=== PATIENT | female | born 1930 | race Caucasian/White ===

== ENCOUNTER 2016-09-21 01:03 | Inpatient (IN) | payer MEDICARE, MEDICAID, OTHER ==
[~2016-09-21] VITALS: Ht 152.4 cm; Wt 75.9 kg
[~2016-09-21 01:03] MED LIST: AMLO10TA4 PO; ASPI-605 PO; BISA10SU12 RC; BLOO-125 IN; CHOL10005 PO; DIGO125T PO; DOCU-25 PO; GUAI118S11 PO; INSU100V28 SQ; INSU100V7 SQ; LEVO500T15 PO; METO50TA PO; METR-105 PO; MULT1CAP34 PO; RIVA10TA PO
[2016-09-21] MEDS ORDERED: PANTOPRAZOLE SODIUM 40 MG VIAL IV ONE (01:45)
[2016-09-21] MEDS ORDERED: IV NORMAL SALINE 1000 ML BAG IV ONE (01:45)
[2016-09-21 01:50] LABS: *OCCULT BLOOD STOOL POSITIVE (NEGATIVE)
[2016-09-21 01:52] LABS: BASOPHILS % (AUTO) 0.4 % (0.0-2.0); EOSINOPHILS # (AUTO) 0.5 K/uL (0.0-0.7); EOSINOPHILS % (AUTO) 4.9 % (0.0-7.0); HEMOGLOBIN 9.5 G/DL (12.0-16.0); LYMPHOCYTES # (AUTO) 2.7 K/UL (0.8-4.8); LYMPHOCYTES % (AUTO) 29.4 % (20.5-51.5); MEAN CORPUSCULAR HEMOGLOBIN 24.3 UUG (27.0-31.0); MEAN CORPUSCULAR HGB CONC 32 g/dL (32.0-37.0); MONOCYTES # (AUTO) 0.7 K/UL (0.1-1.30); NEUTROPHILS # (AUTO) 5.4 K/UL (1.8-8.9); NEUTROPHILS % (AUTO) 58.3 % (38.5-71.5); PLATELET COUNT (AUTO) 643 K/UL (150-450); RED BLOOD CELL COUNT(AUTO) 3.89 MIL/UL (4.2-5.4); WHITE BLOOD COUNT (AUTO) 9.3 K/UL (4.0-11.2)
[2016-09-21] MEDS ORDERED: PANTOPRAZOLE SODIUM 40 MG VIAL ONE (01:58)
[2016-09-21 02:07] LABS: ALANINE AMINOTRANSFERASE 12 U/L (14-59); ALKALINE PHOSPHATASE 74 U/L (50-136); ASPARTATE AMINOTRANSFERASE 24 U/L (15-37); BILIRUBIN,DIRECT < 0.1 mg/dL (0.0-0.2); BILIRUBIN,TOTAL 0.2 mg/dL (0.2-1.0); CARBON DIOXIDE 33 mmol/L (21-32); CHLORIDE 103 mmol/L (98-107); CREATININE 0.8 mg/dL (0.6-1.3); GLUCOSE 200 mg/dL (74-106); LIPASE 88 U/L (73-393); POTASSIUM 3.3 mmol/L (3.5-5.1); TOTAL PROTEIN, SERUM 7.3 g/dL (6.4-8.2); UREA NITROGEN, BLOOD 6 mg/dL (7-18)
[2016-09-21] MEDS ORDERED: CRANBERRY TAB PO (02:07)
[2016-09-21] MEDS ORDERED: FERR325T28 PO (02:07)
[2016-09-21] MEDS ORDERED: ALEN70TA3 PO (02:07)
[2016-09-21] MEDS ORDERED: ACID1TAB4 PO (02:07)
[2016-09-21] MEDS ORDERED: MAGN400T6 PO (02:07)
[2016-09-21] MEDS ORDERED: GLUC1KIT IM (02:07)
[2016-09-21] MEDS ORDERED: MORPHINE SULFATE 4 MG/1 ML DISP.SYRIN ONE (02:13)
[2016-09-21] MEDS ORDERED: MORPHINE SULFATE 4 MG/1 ML DISP.SYRIN IV ONE (02:15)
[2016-09-21] MEDS ORDERED: RISP1TAB7 PO ×2 (02:37)
[2016-09-21] MEDS ORDERED: MAGN400O4 PO (02:37)
[2016-09-21] MEDS ORDERED: INSU10VI3 SQ ×2 (02:37)
[2016-09-21] MEDS ORDERED: ACET-2154 PO (02:37)
[2016-09-21] MEDS ORDERED: OMEP20CA10 PO (02:37)
[2016-09-21] MEDS ORDERED: ASCO500C16 PO (02:37)
[2016-09-21] MEDS ORDERED: POLY17PO4 PO (02:37)
--- NOTE | 2016-09-21 03:17 | NUR ---
Pt. admitted to TELE, under care of Dr. Avila Belongs List completed
[2016-09-21 03:45] VITALS: BP 164/83
--- NOTE | 2016-09-21 04:00 | NUR ---
PATIENT RECEIVED FROM ED ACCOMPANIED BY ER STAFF VIA [facility]. PT ADMITTED TO TELEMETRY FOR GI BLEED, PER REPORT PT WAS POSITIVE FOR OCCULT BLOOD WHERE SHE RESIDES AT [facility] AND ALSO POSITIVE FOR OCCULT BLOOD IN ED. PT HAS HISTORY OF HTN, A-FIB, LEFT PACEMAKER, DIABETES, AND GERD. PT IS NON VERBAL, ABLE TO STATE NAME WITH DELAYED RESPONSE. PT IS CONFUSED AND DISORIENTED, GUARDED, BECAME SOMEWHAT COMBATIVE UPON APPROACH. ON REGRADER PT SHOWING A-FIB IN 120'S. PT HAS HEP LOCK IN RIGHT HAND #22 INTACT. NOTED TO REDNESS ALL OVER BUTTOCKS, BRUISES TO BOTH ARMS, RASH TO UNDER BREAST AND GROIN AREA. MD WAS CALLED FOR ORDERS AND AWARE OF PT STATUS. SAFETY MEASURES MAINTAINED.
[2016-09-21] MEDS ORDERED: ONDANSETRON 4 MG/2 ML VIAL IV PRN (05:15)
[2016-09-21] MEDS ORDERED: Z GUARD REMEDY PASTE 57 GM TUBE TOP PRN (05:15)
[2016-09-21] MEDS ORDERED: DEXTROSE 50% 50 ML DISP.SYRIN IV PRN (05:15)
--- NOTE | 2016-09-21 06:48 | NUR ---
PATIENT RESTING COMFORTABLY AT THIS TIME. PT HAS DVT PUMPS ON. FINGERSTICK 142MG/DL. NO ACUTE DISTRESS NOTED. SAFETY MEASURES MAINTAINED.
[2016-09-21] MEDS: BLOOD SUGAR DIAGNOSTIC 1 EACH STRIP VI SCH ×4 (07:30→20:43)
--- NOTE | 2016-09-21 07:37 | NUR ---
PATIENT RECEIVE IN ROOM RESTING WITH EYES CLOSED EASILY AWAKEN IN NO ACUTE DISTRESS. RESPIRATIONS EVEN AND UNLABORED. H.L. INTACT AND PATENT. FALL PRECAUTIONS IN PLACE.
[2016-09-21] MEDS ORDERED: GLUCAGON,HUMAN RECOMBINANT 1 MG VIAL IM PRN (08:15)
[2016-09-21] MEDS ORDERED: BISACODYL 10 MG SUPP.RECT RC PRN (08:15)
[2016-09-21] MEDS ORDERED: GUAIFENESIN/DEXTROMETHORPHAN 5 ML UDC PO PRN (08:15)
[2016-09-21 08:47] LABS: BASOPHILS % (AUTO) 0.3 % (0.0-2.0); EOSINOPHILS # (AUTO) 0.5 K/uL (0.0-0.7); HEMATOCRIT 29.3 % (37-47); HEMOGLOBIN 9.3 G/DL (12.0-16.0); LYMPHOCYTES # (AUTO) 2.7 K/UL (0.8-4.8); LYMPHOCYTES % (AUTO) 27.6 % (20.5-51.5); MEAN CORPUSCULAR HEMOGLOBIN 24.6 UUG (27.0-31.0); MEAN CORPUSCULAR HGB CONC 32 g/dL (32.0-37.0); MEAN CORPUSCULAR VOLUME 77.7 FL (81.0-99.0); MONOCYTES # (AUTO) 0.7 K/UL (0.1-1.30); MONOCYTES % (AUTO) 6.8 % (0.0-11.0); NEUTROPHILS % (AUTO) 60.3 % (38.5-71.5); PLATELET COUNT (AUTO) 617 K/UL (150-450); RED BLOOD CELL COUNT(AUTO) 3.78 MIL/UL (4.2-5.4); WHITE BLOOD COUNT (AUTO) 9.9 K/UL (4.0-11.2)
[2016-09-21] MEDS: PANTOPRAZOLE SODIUM 40 MG TABLET.DR PO SCH (08:47)
[2016-09-21] MEDS: DOCUSATE SODIUM 100 MG CAPSULE PO SCH ×2 (08:47→20:43)
[2016-09-21] MEDS: FERROUS SULFATE 325 MG TABEC PO SCH ×4 (08:48→17:03)
[2016-09-21] MEDS: CHOLECALCIFEROL 1,000 UNIT TABLET PO SCH (08:48)
[2016-09-21] MEDS: MAGNESIUM OXIDE 400 MG TABLET PO SCH (08:48)
[2016-09-21] MEDS: MULTIVITAMINS,THERAPEUTIC TABLET PO SCH (08:48)
[2016-09-21] MEDS: DIGOXIN 125 MCG TABLET PO SCH (08:51)
[2016-09-21] MEDS: METOPROLOL TARTRATE 50 MG TABLET PO SCH ×2 (08:52→20:42)
[2016-09-21] MEDS: AMLODIPINE 10 MG TABLET PO SCH (08:52)
[2016-09-21] MEDS: ACIDOPHILUS/BULGARICUS CHEW TAB PO SCH (08:52)
[2016-09-21] MEDS ORDERED: ASPIRIN EC 81 MG TABLET.DR PO SCH (09:00)
--- NOTE | 2016-09-21 09:10 | NUR ---
INSULIN HELD, PATIENT DID NOT EAT.
[2016-09-21] MEDS ORDERED: POTASSIUM CHLORIDE 20 MEQ TAB.PRT.SR PO ONE (09:45)
[2016-09-21] MEDS ORDERED: POTASSIUM CHLORIDE 20 MEQ POWDER PACKET PO ONE (10:15)
[2016-09-21] MEDS: LEVOFLOXACIN 500 MG TABLET PO SCH ×2 (11:00→12:28)
[2016-09-21] MEDS ORDERED: ACETAMINOPHEN 325 MG TABLET PO PRN (11:15)
[2016-09-21] MEDS: risperiDONE 1 MG TABLET PO SCH ×3 (11:15→20:42)
[2016-09-21] MEDS ORDERED: MAGNESIUM HYDROXIDE 30 ML LIQUID UDC PO PRN (11:15)
[2016-09-21] MEDS ORDERED: MIRALAX 17 GM POWD.PACK PO PRN (11:15)
--- NOTE | 2016-09-21 11:20 | NUR ---
UA COLLECTED AND SENT TO LAB.
[2016-09-21 11:23] LABS: *BILIRUBIN,URIN NEGATIVE (NEGATIVE); *BLOOD, URINE 2+ (NEGATIVE); *CLARITY,URINE TURBID (CLEAR); *COLOR,URINE YELLOW (YELLOW); *KETONES,URINE NEGATIVE (NEGATIVE); *PROTEIN,URINE NEGATIVE (NEGATIVE); *UROBILINOGEN,URINE 0.2 E.U./dl (NORMAL); LEUKOCYTE ESTERASE ,URINE 3+ (NEGATIVE); NITRITE, URINE POSITIVE (NEGATIVE); UGLUCOSE NEGATIVE (NEGATIVE)
[2016-09-21] MEDS ORDERED: BLOOD SUGAR DIAGNOSTIC 1 EACH STRIP VI SCH (11:30)
[2016-09-21] MEDS ORDERED: INSULN ASP PRT/INSULIN ASPART 70/30 1000 UNITS/10 ML VIAL SQ SCH ×2 (11:30→17:00)
[2016-09-21 11:36] VITALS: BP 131/64
[2016-09-21 11:53] LABS: BACTERIA,URINE MANY /HPF (NONE SEEN); RBC,URINE 20-50 /HPF (0-3); SQUAMOUS EPITHELIAL CELL,UR MODERATE /HPF (NONE SEEN); WBC,URINE TNTC /HPF (0-3)
--- NOTE | 2016-09-21 12:00 | NUR ---
PATIENT REFUSING PO MEDS AT THIS TIME.
[2016-09-21] MEDS: INSULIN REGULAR, HUMAN 300 UNIT/3 ML VIAL SQ PRN ×3 (12:30→20:44)
[2016-09-21] MEDS: METRONIDAZOLE 500 MG TABLET PO SCH ×3 (14:00→21:22)
--- NOTE | 2016-09-21 14:00 | NUR ---
PATIENT REFUSED 1300 AND 1400 MEDS.
[2016-09-21 14:24] LABS: BASOPHILS % (AUTO) 0.5 % (0.0-2.0); EOSINOPHILS # (AUTO) 0.4 K/uL (0.0-0.7); EOSINOPHILS % (AUTO) 4.1 % (0.0-7.0); HEMATOCRIT 27.9 % (37-47); LYMPHOCYTES # (AUTO) 2.6 K/UL (0.8-4.8); LYMPHOCYTES % (AUTO) 28.1 % (20.5-51.5); MEAN CORPUSCULAR HEMOGLOBIN 25.1 UUG (27.0-31.0); MEAN CORPUSCULAR HGB CONC 32 g/dL (32.0-37.0); MEAN CORPUSCULAR VOLUME 77.7 FL (81.0-99.0); MONOCYTES # (AUTO) 0.7 K/UL (0.1-1.30); MONOCYTES % (AUTO) 7.7 % (0.0-11.0); NEUTROPHILS # (AUTO) 5.6 K/UL (1.8-8.9); NEUTROPHILS % (AUTO) 59.6 % (38.5-71.5); PLATELET COUNT (AUTO) 565 K/UL (150-450); RED BLOOD CELL COUNT(AUTO) 3.59 MIL/UL (4.2-5.4); WHITE BLOOD COUNT (AUTO) 9.3 K/UL (4.0-11.2)
[2016-09-21 15:22] VITALS: BP 152/70
--- NOTE | 2016-09-21 17:51 | NUR ---
END OF SHIFT NOTE: PATIENT IN NO ACUTE DISTRESS THROUGHOUT SHIFT. DENIED PAIN. VSS. HR 96 ON COLLET DRILLER. RESPIRATIONS EVEN AND UNLABORED. INCONTINENT OF B+B. TURNED AND REPOSITIONED EVERY 2 HOURS AND PRN. HOB ELEVATED FOR MEALS. ABLE TO FEED SELF WITH MINIMAL ASSISTANCE. ATE SOUP AND MASHED POTATOES FOR DINNER. FALL PRECAUTIONS IN PLACE.
[2016-09-21] MEDS ORDERED: RIVAROXABAN 10 MG TABLET PO SCH ×2 (18:00)
--- NOTE | 2016-09-21 19:30 | NUR ---
PT RECEIVED IN BED, AWAKE, ALERT, AND COMFORTABLE. NO SIGNS OF ACUTE DISTRESS. NEEDS ATTENDED. SAFETY INITIATED. CALL WITHIN REACH. WILL CONTINUE TO MONITOR.
[2016-09-21 20:00] VITALS: BP 154/85
--- NOTE | 2016-09-21 20:53 | NUR ---
PT REFUSES TO EAT. DIANA CANNON.
[2016-09-21] MEDS ORDERED: INSULIN DETEMIR 300 UNIT/3 ML CARTRIDGE SQ SCH (21:00)
[2016-09-21 21:37] LABS: IRON, SERUM 20 ug/dL (50-175)
[2016-09-21 22:13] LABS: FERRITIN 19 ng/mL (8-252)
--- NOTE | 2016-09-21 22:30 | NUR ---
SEEN AND EVALUATED BY . PLEASE SEE NOTES
[2016-09-22] VITALS (7 sets, daily range): BP systolic 125–160; BP diastolic 64–80
--- NOTE | 2016-09-22 00:07 | NUR ---
NOTED BILATERAL BUTTOCKS OPEN WOUND. PICTURES TAKEN. WOUND TREATMENT PROVIDED. WOUND CARE CONSULT ORDERED. WILL CONTINUE TO TURN AND REPOSITION.
[2016-09-22] MEDS: METRONIDAZOLE 500 MG TABLET PO SCH ×3 (06:00→21:08)
--- NOTE | 2016-09-22 06:08 | NUR ---
END OF SHIFT NOTES. PT ASLEEP INTERMITTENTLY THROUGHOUT SHIFT. V/S STABLE. NO SIGNS OF ACUTE DISTRESS. PACEMAKER IS A-FIB WITH V-PACE AND PVC. REFUSES TO EAT OR DRINK. PROVIDED TEACHING ON PROS AND CONS OF REFUSING FOOD OR DRINK INTAKE. NEEDS ATTENDED. SAFETY MAINTAINED. CALL LIGHT WITHIN REACH. CONTINUE PLAN OF CARE.
[2016-09-22] MEDS: BLOOD SUGAR DIAGNOSTIC 1 EACH STRIP VI SCH ×4 (06:43→20:38)
[2016-09-22] MEDS: PANTOPRAZOLE SODIUM 40 MG TABLET.DR PO SCH (06:50)
[2016-09-22] MEDS ORDERED: PANTOPRAZOLE SODIUM 40 MG TABLET.DR PO SCH (07:00)
[2016-09-22 07:07] LABS: BASOPHILS % (AUTO) 0.3 % (0.0-2.0); EOSINOPHILS # (AUTO) 0.5 K/uL (0.0-0.7); EOSINOPHILS % (AUTO) 6.6 % (0.0-7.0); HEMATOCRIT 29.8 % (37-47); HEMOGLOBIN 9.6 G/DL (12.0-16.0); LYMPHOCYTES # (AUTO) 2.5 K/UL (0.8-4.8); LYMPHOCYTES % (AUTO) 31.3 % (20.5-51.5); MEAN CORPUSCULAR HEMOGLOBIN 24.8 UUG (27.0-31.0); MEAN CORPUSCULAR HGB CONC 32 g/dL (32.0-37.0); MEAN CORPUSCULAR VOLUME 77.2 FL (81.0-99.0); MONOCYTES # (AUTO) 0.5 K/UL (0.1-1.30); MONOCYTES % (AUTO) 5.7 % (0.0-11.0); NEUTROPHILS # (AUTO) 4.6 K/UL (1.8-8.9); NEUTROPHILS % (AUTO) 56.1 % (38.5-71.5); PLATELET COUNT (AUTO) 598 K/UL (150-450); RED BLOOD CELL COUNT(AUTO) 3.86 MIL/UL (4.2-5.4); WHITE BLOOD COUNT (AUTO) 8.1 K/UL (4.0-11.2)
--- NOTE | 2016-09-22 08:01 | NUR ---
Awake, confused, on moderate high back rest. Breakfast served but pushed the table aside
[2016-09-22 08:11] LABS: ALANINE AMINOTRANSFERASE 11 U/L (14-59); ALKALINE PHOSPHATASE 69 U/L (50-136); ASPARTATE AMINOTRANSFERASE 19 U/L (15-37); BILIRUBIN,TOTAL 0.3 mg/dL (0.2-1.0); CARBON DIOXIDE 35 mmol/L (21-32); CHLORIDE 104 mmol/L (98-107); CREATININE 0.9 mg/dL (0.6-1.3); DIGOXIN 0.2 ng/mL (0.9-2.0); GLUCOSE 138 mg/dL (74-106); MAGNESIUM 1.7 mg/dL (1.8-2.4); PHOSPHOROUS 2.7 mg/dL (2.5-4.9); POTASSIUM 3.1 mmol/L (3.5-5.1); TOTAL PROTEIN, SERUM 6.7 g/dL (6.4-8.2); UREA NITROGEN, BLOOD 8 mg/dL (7-18)
[2016-09-22] MEDS: risperiDONE 1 MG TABLET PO SCH ×2 (08:44→20:39)
[2016-09-22] MEDS: MULTIVITAMINS,THERAPEUTIC TABLET PO SCH ×2 (09:00→09:10)
[2016-09-22] MEDS: DIGOXIN 125 MCG TABLET PO SCH ×2 (09:00→09:09)
[2016-09-22] MEDS: CHOLECALCIFEROL 1,000 UNIT TABLET PO SCH ×2 (09:00→09:10)
[2016-09-22] MEDS: ASCORBIC ACID 500 MG TABLET PO SCH ×2 (09:00→09:10)
[2016-09-22] MEDS: DOCUSATE SODIUM 100 MG CAPSULE PO SCH ×3 (09:00→20:40)
[2016-09-22] MEDS: MAGNESIUM OXIDE 400 MG TABLET PO SCH ×2 (09:00→09:09)
[2016-09-22] MEDS ORDERED: ASPIRIN EC 81 MG TABLET.DR PO SCH (09:00)
--- NOTE | 2016-09-22 09:00 | NUR ---
Refusing to eat and take meds, crushed with juice still refused, only gave Risperdal and BP meds at this time, will attempt again.
[2016-09-22] MEDS: AZTREONAM 1 G in IV NORMAL SALINE 50 ML IV SCH ×3 (09:02→21:08)
[2016-09-22] MEDS: ACIDOPHILUS/BULGARICUS CHEW TAB PO SCH (09:08)
[2016-09-22] MEDS: FERROUS SULFATE 325 MG TABEC PO SCH ×3 (09:08→17:24)
[2016-09-22] MEDS: METOPROLOL TARTRATE 50 MG TABLET PO SCH ×2 (09:09→20:40)
[2016-09-22] MEDS: AMLODIPINE 10 MG TABLET PO SCH (09:09)
[2016-09-22] MEDS ORDERED: MAGNESIUM OXIDE 400 MG TABLET PO ONE (09:15)
[2016-09-22] MEDS ORDERED: POTASSIUM CHLORIDE 20 MEQ POWDER PACKET PO ONE (09:15)
[2016-09-22] MEDS: LEVOFLOXACIN 500 MG TABLET PO SCH (11:57)
--- NOTE | 2016-09-22 14:00 | NUR ---
Ate lunch, and took medications with Juice.
--- NOTE | 2016-09-22 14:53 | NUR ---
WOUND CARE CONSULT: PT PRESENTS WITH EXCORIATED AREAS TO BILATERAL BUTTOCKS, PRESENT ON ADMISSION. RECOMMENDATIONS MADE FOR SKIN PROTECTION. DISCUSSED WITH NURSING STAFF. PT ON FIRST STEP MATTRESS. WILL SEE PRN. CORONEL IN AGREEMENT WITH PLAN OF CARE. Addendum: 09/22/16 at 1454 by HECTOR COLE RN Amended: Links added.
--- NOTE | 2016-09-22 16:00 | NUR ---
Dr. Raymond for GI consult seen patient and spoke with son Sang. Consent for EGD signed by son.
[2016-09-22] MEDS: INSULIN REGULAR, HUMAN 300 UNIT/3 ML VIAL SQ PRN ×2 (17:25→20:52)
--- NOTE | 2016-09-22 18:32 | NUR ---
Had BM, incontinence care, kept dry and comfortable.
--- NOTE | 2016-09-22 19:10 | NUR ---
PATIENT AWAKE VERBALLY RESPONSIVE, NO COMPLAIN OF PAIN, NO SOB NO CHEST PAIN NOTED, KEPT CLEAN DRY AND COMFORTABLE.
[2016-09-22] MEDS ORDERED: INSULIN DETEMIR 300 UNIT/3 ML CARTRIDGE SQ SCH (21:00)
[2016-09-23] MEDS: AZTREONAM 1 G in IV NORMAL SALINE 50 ML IV SCH ×2 (05:27→13:42)
[2016-09-23] MEDS: METRONIDAZOLE 500 MG TABLET PO SCH ×3 (05:27→21:03)
[2016-09-23] MEDS: PANTOPRAZOLE SODIUM 40 MG TABLET.DR PO SCH (06:02)
[2016-09-23] MEDS: BLOOD SUGAR DIAGNOSTIC 1 EACH STRIP VI SCH ×4 (06:03→21:02)
[2016-09-23 06:06] VITALS: BP 141/81
--- NOTE | 2016-09-23 06:40 | NUR ---
PATIENT IV WAS DISLOGGED, REINSERT NEW ONE, TOLERATE WELL. SLEPT MOST OF THE NIGHT, NO SOB NO CHEST PAIN, NO ASE FROM ABX. CONT TO MONITOR.
[2016-09-23 06:47] LABS: BASOPHILS % (AUTO) 0.2 % (0.0-2.0); EOSINOPHILS # (AUTO) 0.5 K/uL (0.0-0.7); EOSINOPHILS % (AUTO) 6.4 % (0.0-7.0); HEMATOCRIT 30.3 % (37-47); HEMOGLOBIN 9.9 G/DL (12.0-16.0); LYMPHOCYTES # (AUTO) 2.3 K/UL (0.8-4.8); LYMPHOCYTES % (AUTO) 28.2 % (20.5-51.5); MEAN CORPUSCULAR HEMOGLOBIN 25.5 UUG (27.0-31.0); MEAN CORPUSCULAR HGB CONC 33 g/dL (32.0-37.0); MEAN CORPUSCULAR VOLUME 77.9 FL (81.0-99.0); MONOCYTES # (AUTO) 0.6 K/UL (0.1-1.30); MONOCYTES % (AUTO) 7.6 % (0.0-11.0); NEUTROPHILS # (AUTO) 4.9 K/UL (1.8-8.9); NEUTROPHILS % (AUTO) 57.6 % (38.5-71.5); PLATELET COUNT (AUTO) 591 K/UL (150-450); RED BLOOD CELL COUNT(AUTO) 3.89 MIL/UL (4.2-5.4); WHITE BLOOD COUNT (AUTO) 8.3 K/UL (4.0-11.2)
[2016-09-23 07:18] LABS: ALANINE AMINOTRANSFERASE 11 U/L (14-59); ALKALINE PHOSPHATASE 69 U/L (50-136); ASPARTATE AMINOTRANSFERASE 17 U/L (15-37); BILIRUBIN,TOTAL 0.3 mg/dL (0.2-1.0); CARBON DIOXIDE 32 mmol/L (21-32); CHLORIDE 105 mmol/L (98-107); CREATININE 0.9 mg/dL (0.6-1.3); GLUCOSE 176 mg/dL (74-106); MAGNESIUM 1.8 mg/dL (1.8-2.4); PHOSPHOROUS 2.4 mg/dL (2.5-4.9); POTASSIUM 3.4 mmol/L (3.5-5.1); UREA NITROGEN, BLOOD 9 mg/dL (7-18)
[2016-09-23] MEDS: CHOLECALCIFEROL 1,000 UNIT TABLET PO SCH (08:10)
[2016-09-23] MEDS: DOCUSATE SODIUM 100 MG CAPSULE PO SCH ×2 (08:10→20:59)
[2016-09-23] MEDS: risperiDONE 1 MG TABLET PO SCH ×2 (08:10→20:59)
[2016-09-23] MEDS: FERROUS SULFATE 325 MG TABEC PO SCH ×3 (08:10→17:04)
[2016-09-23] MEDS: ASCORBIC ACID 500 MG TABLET PO SCH (08:10)
[2016-09-23] MEDS: ACIDOPHILUS/BULGARICUS CHEW TAB PO SCH (08:10)
[2016-09-23] MEDS: MULTIVITAMINS,THERAPEUTIC TABLET PO SCH (08:10)
[2016-09-23] MEDS: DIGOXIN 125 MCG TABLET PO SCH (08:11)
[2016-09-23] MEDS: METOPROLOL TARTRATE 50 MG TABLET PO SCH ×2 (08:11→21:00)
[2016-09-23] MEDS: AMLODIPINE 10 MG TABLET PO SCH (08:11)
[2016-09-23] MEDS: POTASSIUM PHOSPHATE MM 5 MMOL in IV DEXTROSE 5% 100 ML IV SCH ×2 (08:46→11:14)
--- NOTE | 2016-09-23 10:00 | NUR ---
Pt received from surgery team. Procedure was not done due to anesthesiologist was unable to receive consent for anesthesia and unable to contact SON. Pt is in no acute distress. Call light is within reach. reapply pts watch on right hand shown with charge nurse. Addendum: 09/23/16 at 1850 by HOMER GABRIEL MARS SON was finally called back surgical team. SON aware that surgery team will attempt to do the EGD again tomorrow and for the SON to warp picker his phone to give consent to anesthesiologists. Notified surgical nurse that med surg nurses doesn't get the anesthesia consent only surgical consent.
[2016-09-23] MEDS: LEVOFLOXACIN 500 MG TABLET PO SCH (11:21)
[2016-09-23] MEDS: INSULIN REGULAR, HUMAN 300 UNIT/3 ML VIAL SQ PRN ×3 (11:23→21:07)
[2016-09-23 11:52] VITALS: BP 158/62
--- NOTE | 2016-09-23 13:00 | NUR ---
Pt had poor appetite for dinner. But pt cooperative on taking her medications. Pt is in no acute distress. Call light is within reach. Addendum: 09/23/16 at 1826 by CARLOS RIOS RN lunch
[2016-09-23] MEDS: MAGNESIUM OXIDE 400 MG TABLET PO SCH (13:42)
[2016-09-23] MEDS: MEROPENEM 500 MG in IV NORMAL SALINE 50 ML IV SCH (15:31)
[2016-09-23 15:35] VITALS: BP 117/68
--- NOTE | 2016-09-23 18:26 | NUR ---
Pt had dinner about 10% of meal changed consistency of food to PUREE due to pt is coughing with regular food even with aspiration precautions. HOB elevated to 90 deg. small sips, small bites and no straws. Checked mouth and no pocketing noted.
[2016-09-23 19:00] VITALS: BP 137/74
--- NOTE | 2016-09-23 21:02 | NUR ---
Metoprolol not given, HR 56.
[2016-09-24 04:00] VITALS: BP 105/57
[2016-09-24] MEDS: MEROPENEM 500 MG in IV NORMAL SALINE 50 ML IV SCH ×2 (04:01→17:58)
--- NOTE | 2016-09-24 05:26 | NUR ---
SLEEPING AT THIS TIME. IN NO ACUTE SIGNS OF DISTRESS. TURNED AND REPOSITIONED. WOUND CARE DONE. SAFETY MAINTAINED. PT NPO POST MIDNIGHT FOR SCHEDULED EGD IN AM. PREOP CHECKLIST DONE.
[2016-09-24] MEDS: METRONIDAZOLE 500 MG TABLET PO SCH ×3 (06:00→21:12)
[2016-09-24] MEDS: PANTOPRAZOLE SODIUM 40 MG TABLET.DR PO SCH (06:50)
[2016-09-24] MEDS: BLOOD SUGAR DIAGNOSTIC 1 EACH STRIP VI SCH ×4 (06:51→21:21)
[2016-09-24] MEDS: INSULIN REGULAR, HUMAN 300 UNIT/3 ML VIAL SQ PRN ×4 (07:59→21:23)
--- NOTE | 2016-09-24 07:59 | NUR ---
Patient NPO therefore insulin held. BS 177.
--- NOTE | 2016-09-24 08:44 | NUR ---
Patient is scheduled for EGDthis morning. Patient is NPO. BP is slightly below normal limits. Will hold medications until patient returns back. No scheduled time for patient, called surgery. Awaiting anesthesia consent which is to be done by surgical team.
[2016-09-24] MEDS: DOCUSATE SODIUM 100 MG CAPSULE PO SCH ×2 (09:00→21:00)
[2016-09-24] MEDS: MULTIVITAMINS,THERAPEUTIC TABLET PO SCH (11:02)
[2016-09-24] MEDS: CHOLECALCIFEROL 1,000 UNIT TABLET PO SCH (11:02)
[2016-09-24] MEDS: METOPROLOL TARTRATE 50 MG TABLET PO SCH ×2 (11:02→21:13)
[2016-09-24] MEDS: risperiDONE 1 MG TABLET PO SCH ×2 (11:02→21:13)
[2016-09-24] MEDS: DIGOXIN 125 MCG TABLET PO SCH (11:03)
[2016-09-24] MEDS: ASCORBIC ACID 500 MG TABLET PO SCH (11:03)
[2016-09-24] MEDS: AMLODIPINE 10 MG TABLET PO SCH (11:03)
[2016-09-24] MEDS: ACIDOPHILUS/BULGARICUS CHEW TAB PO SCH (11:03)
[2016-09-24] MEDS: FERROUS SULFATE 325 MG TABEC PO SCH ×3 (11:03→17:37)
[2016-09-24 11:58] VITALS: BP 134/74
[2016-09-24] MEDS: MAGNESIUM OXIDE 400 MG TABLET PO SCH (13:49)
[2016-09-24 15:55] VITALS: BP 130/70
--- NOTE | 2016-09-24 19:10 | NUR ---
PATIENT IN BED NO SOB NO CHEST PAIN, KEPT CLEAN AND DRY, NO DISTRESS.
[2016-09-24 20:00] VITALS: BP 145/71
[2016-09-25] MEDS: MEROPENEM 500 MG in IV NORMAL SALINE 50 ML IV SCH ×2 (03:57→16:08)
[2016-09-25 04:00] VITALS: BP 142/68
[2016-09-25] MEDS: BLOOD SUGAR DIAGNOSTIC 1 EACH STRIP VI SCH ×4 (06:07→20:58)
[2016-09-25] MEDS: METRONIDAZOLE 500 MG TABLET PO SCH (06:07)
[2016-09-25] MEDS: PANTOPRAZOLE SODIUM 40 MG TABLET.DR PO SCH (06:07)
--- NOTE | 2016-09-25 07:00 | NUR ---
PATIENT BLOOD SUGAR 191 , PATIENT REFUSED INSULIN, TRYING TO HIT NURSE, OFFERED X 3 STILL COMBATIVE. REFUSED.
--- NOTE | 2016-09-25 07:58 | NUR ---
PATIENT SLEPT MOST OF THE NIGHT, NO SOB NO CHEST PAIN, KEPT CLEAN AND DRY REMAIN NPO. NO DISTRESS.
--- NOTE | 2016-09-25 08:15 | NUR ---
ATTEMPTED TO GIVE PATIENT HER BETA PEREZ AND AMLODIPINE EVEN THOUG SHE IS NPO FOR SURGERY BUT SHE REFUSED SPIT OUT AND VERY AGITATED THE OR NURSE WAS INFORNED THAT I WAS NOT ABLE TO ADMINISTER THE HER BLOOD PRESSURE MEDICATIONS.
[2016-09-25] MEDS: METOPROLOL TARTRATE 50 MG TABLET PO SCH ×2 (08:45→20:57)
[2016-09-25] MEDS: AMLODIPINE 10 MG TABLET PO SCH (08:45)
[2016-09-25] MEDS: risperiDONE 1 MG TABLET PO SCH ×2 (09:00→20:58)
[2016-09-25] MEDS: CHOLECALCIFEROL 1,000 UNIT TABLET PO SCH (09:00)
[2016-09-25] MEDS: DOCUSATE SODIUM 100 MG CAPSULE PO SCH ×2 (09:00→20:56)
[2016-09-25] MEDS: FERROUS SULFATE 325 MG TABEC PO SCH ×3 (09:00→17:08)
[2016-09-25] MEDS: ACIDOPHILUS/BULGARICUS CHEW TAB PO SCH (09:00)
[2016-09-25] MEDS: ASCORBIC ACID 500 MG TABLET PO SCH (09:00)
[2016-09-25] MEDS: MULTIVITAMINS,THERAPEUTIC TABLET PO SCH (09:00)
[2016-09-25] MEDS: DIGOXIN 125 MCG TABLET PO SCH (09:00)
--- NOTE | 2016-09-25 09:05 | NUR ---
CALLED AND SPOKE WITH PATIENTS SON AND CONSCENT OBTAINED OVER THE PHONE FOR EGD ORDERED TODAY.
--- NOTE | 2016-09-25 09:45 | NUR ---
PATIENT PICKED UP BY BED TO GI LAB FOR THE SCHEDULED PROCEDURE IN SATISFACTORY CONDITION.
[2016-09-25] MEDS ORDERED: IV LACTATED RINGERS SOLUTION 1,000 ML BAG IV ONE (11:04)
[2016-09-25] MEDS ORDERED: PROPOFOL 200 MG/20 ML BOTTLE IV ONE (11:04)
[2016-09-25] MEDS ORDERED: LIDOCAINE HCL 1% 20 ML VIAL MC ONE (11:04)
--- NOTE | 2016-09-25 11:20 | NUR ---
PATIENT RETURNED FROM HER EGD PROCEDURE BY BED TO HER ROOM AWAKE ALERT TO SELF WITH CONFUSSION AND DISORIENTATION MADE COMFORTABLE
[2016-09-25 11:33] VITALS: BP 124/72
[2016-09-25 12:00] VITALS: BP 127/59
[2016-09-25] MEDS: MAGNESIUM OXIDE 400 MG TABLET PO SCH (12:04)
[2016-09-25 12:30] VITALS: BP 126/63
[2016-09-25] MEDS: INSULIN REGULAR, HUMAN 300 UNIT/3 ML VIAL SQ PRN ×3 (12:40→21:09)
--- NOTE | 2016-09-25 13:00 | NUR ---
PATIENT IS AWAKE WITH CONFUSSION AND DISORIENTATION ALL NEEDS ANTICIPATED AND SATISFIED.REMAIN ON ROOM AIR MADE COMFORTABLE NOT IN DISTRESS AT THIS TIME.
--- NOTE | 2016-09-25 16:00 | NUR ---
PATIENTS SON HERE AND HE WAS UPDATED ON PATIENTS CONDITION AND HE EXPRESSED UNDERSTANDING.
[2016-09-25 16:06] VITALS: BP 117/56
[2016-09-25] MEDS ORDERED: RIVAROXABAN 10 MG TABLET PO SCH (18:00)
--- NOTE | 2016-09-25 18:00 | NUR ---
DID NOT EAT MUCH FOR DINNER BUT ATE TWO APPLE SAUCE AND DRANK SOME JUICE WILL CONTINUE TO OBSERVE.REMAIN ON CONTACT ISOLATION FOR ESBL IN THE URINE REMAIN ON ANTIBIOTICS ORDERED WITH NO ADVERSE OR ALLERGIC REACTIONS AT THIS TIME.NOT IN DISTRESS.
--- NOTE | 2016-09-25 19:10 | NUR ---
PATIENT AWAKE ALSO FORGETFUL, PATIENT HAS EPISODE OF COMBATIVE, RESIST CARE, ORIENT PATIENT WITH ALL PROCEDURES, KEPT CLEAN AND DRY, TREATMENT CONTINUE ON R L BUTTOCK EXCORIATION, AND R L GROIN RASHES, NO S/S OF DISTRESS.
[2016-09-25 20:00] VITALS: BP 129/68
[2016-09-26] MEDS: MEROPENEM 500 MG in IV NORMAL SALINE 50 ML IV SCH (04:30)
[2016-09-26 04:54] VITALS: BP 132/65
[2016-09-26] MEDS: BLOOD SUGAR DIAGNOSTIC 1 EACH STRIP VI SCH (05:49)
[2016-09-26] MEDS: PANTOPRAZOLE SODIUM 40 MG TABLET.DR PO SCH (05:50)
--- NOTE | 2016-09-26 06:50 | NUR ---
PATIENT SLEPT MOST OF THE NIGHT NO SOB NO CHEST PAIN NOTED, REMAIN ON CONTACT ISOLATION, CONT ABX FOR UTI, WITH NO ASE NOTED.NO S/S OF DISTRESS.
[2016-09-26] MEDS: INSULIN REGULAR, HUMAN 300 UNIT/3 ML VIAL SQ PRN (07:28)
--- NOTE | 2016-09-26 07:30 | NUR ---
pt received in bed sleeping.pt is confused,upon approach she start hitting.
[2016-09-26] MEDS: MULTIVITAMINS,THERAPEUTIC TABLET PO SCH (08:03)
[2016-09-26] MEDS: ASCORBIC ACID 500 MG TABLET PO SCH (08:03)
[2016-09-26] MEDS: METOPROLOL TARTRATE 50 MG TABLET PO SCH (08:03)
[2016-09-26] MEDS: DOCUSATE SODIUM 100 MG CAPSULE PO SCH (08:03)
[2016-09-26] MEDS: FERROUS SULFATE 325 MG TABEC PO SCH (08:03)
[2016-09-26] MEDS: CHOLECALCIFEROL 1,000 UNIT TABLET PO SCH (08:03)
[2016-09-26 08:04] VITALS: BP 141/73
[2016-09-26] MEDS: ACIDOPHILUS/BULGARICUS CHEW TAB PO SCH (08:04)
[2016-09-26] MEDS: risperiDONE 1 MG TABLET PO SCH (08:04)
[2016-09-26] MEDS: DIGOXIN 125 MCG TABLET PO SCH (08:04)
[2016-09-26] MEDS: AMLODIPINE 10 MG TABLET PO SCH (08:04)
--- NOTE | 2016-09-26 11:07 | NUR ---
d/c orders received noted and carried out.d/c instructions and educations given to the [facility].d/c heplock per md orders.pt left the facility via ambulances in stable condition.rn report given to the [facility].
[2016-09-27] MEDS ORDERED: ALENDRONATE SODIUM 70 MG TABLET PO SCH (06:00)
== END 2016-09-26 11:05 | DRG 377 ==
LOC: ER 01:06 → TELE 03:18 → MED 09-22 12:15
PROVIDERS: ADMIT Internal Medicine; ATTEND Internal Medicine
PROC: 0DJ08ZZ Inspection of Upper Intestinal Tract, Via Natural or Artificial Opening Endoscopic (ICD-10-PCS; principal; 2016-09-25 10:00)
DX: K92.2 Gastrointestinal hemorrhage, unspecified (principal); I21.4 Non-ST elevation (NSTEMI) myocardial infarction; G82.50 Quadriplegia, unspecified; I50.32 Chronic diastolic (congestive) heart failure; R47.01 Aphasia; E46 Unspecified protein-calorie malnutrition; J98.11 Atelectasis; I48.2 Chronic atrial fibrillation; Z66 Do not resuscitate; Z79.01 Long term (current) use of anticoagulants; Z79.4 Long term (current) use of insulin; Z79.83 Long term (current) use of bisphosphonates; Z79.899 Other long term (current) drug therapy; F20.9 Schizophrenia, unspecified; F31.9 Bipolar disorder, unspecified; D50.0 Iron deficiency anemia secondary to blood loss (chronic); Z95.0 Presence of cardiac pacemaker; I25.10 Atherosclerotic heart disease of native coronary artery without angina pectoris; M81.0 Age-related osteoporosis without current pathological fracture; F03.90 Unspecified dementia, unspecified severity, without behavioral disturbance, psychotic disturbance, mood disturbance, and anxiety; E11.9 Type 2 diabetes mellitus without complications; I25.2 Old myocardial infarction; I10 Essential (primary) hypertension; K21.9 Gastro-esophageal reflux disease without esophagitis
CPT/HCPCS: 36415; 43235; 70030-TC; 71010; 83550; 83605; 83690; 83735; 84100; 85025; 85730; 86850; 86900; 86901; 87077; 87086; 93005; 93307; A4217; A4663; C9113; J1815; J2185; J2270; J3490; J7030; J7050; J7060; J7120